=== PATIENT | female | born 1955 | race Caucasian/White ===

== ENCOUNTER 2016-08-07 17:01 | Emergency (ER) | payer OTHER | END 2016-08-07 17:06 | disposition left against medical advice (07) | LOC: CED 17:01 | DX: Z53.21 Procedure and treatment not carried out due to patient leaving prior to being seen by health care provider (principal) ==

== ENCOUNTER → 2017-01-26 | Outpatient (CLI) | payer OTHER | LOC: CIMAGING 13:37 | PROVIDERS: ATTEND Family Medicine | DX: Z12.31 Encounter for screening mammogram for malignant neoplasm of breast (principal); Z80.3 Family history of malignant neoplasm of breast | CPT/HCPCS: G0202 ==

== ENCOUNTER 2017-02-26 08:31 | Emergency (ER) | payer OTHER ==
[2017-02-26] MEDS ORDERED: NS 1,000 ML IV ONE (08:59)
[2017-02-26] MEDS ORDERED: ONDANSETRON 4 MG/2 ML VIAL IVP ONE (09:08)
[2017-02-26] MEDS ORDERED: HYDROmorphONE/DILAUDID 1 MG/ML INJ IVP ONE ×3 (09:09→12:29)
--- NOTE | 2017-02-26 09:13 | EDPHY ---
H & P Stated Complaint: Abd pain/cramping;+nausea - Personal History Current Tetanus Diphtheria and Acellular Pertussis (TDAP): Yes Tetanus Vaccine Date: 2009 - Medical/Surgical History Hx Asthma: No Hx Chronic Respiratory Disease: No Hx Diabetes: No Hx Cardiac Disease: Yes Hx Renal Disease: No Hx Cirrhosis: No Hx Alcoholism: No Hx HIV/AIDS: No Hx Splenectomy or Spleen Trauma: No Other PMH: med hx-depression/anxiety,diverticulitis,cholesterol,bleeding duodenal ulcer,nephrectomy,CAD. surg-appy,1-kidney,héctor and c-sect - Social History Smoking Status: Former smoker Time Seen by Provider: 02/26/17 08:55 HPI/ROS: CHIEF COMPLAINT: Epigastric pain, nausea HISTORY OF PRESENT ILLNESS: 62-year-old female history of irritable bowel syndrome, coronary artery disease, awoke at 4:00 a.m. complaining of a non thunderclap headache followed by nausea and epigastric pain, feels like "there is a dagger going through me ". She was evaluated previously several years ago for chest pain with coronary artery disease without stenting. She states that this feels distinctly different from that episode this feels more like a gastritis or irritable bowel syndrome episode. Denies: chest pain, dyspnea, syncope or near syncope, diaphoresis PRIMARY CARE PROVIDER:Dr. Angy Cui. Dr. Ray Rock cardiology REVIEW OF SYSTEMS: A ten point review of systems was performed and is negative with the exception of the items mentioned in the HPI PAST MEDICAL & SURGICAL HISTORY: Appendectomy. Cholecystectomy. Diverticulitis. Coronary artery disease. 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 No drug use. . PHYSICAL EXAM (Prior to examination, patient consented to physical exam, hands were washed and my usual and customary physical exam procedures followed) 1) GENERAL: Well-developed, well-nourished, alert and oriented. Appears uncomfortable, holding an emesis basin. 2) HEAD: Normocephalic, atraumatic 3) HEENT: Pupils equal, round, reactive to light bilaterally. Sclera anicteric. 4) NECK: Full range of motion, no meningeal signs. Negative carotid bruit 5) LUNGS: Clear auscultation bilaterally, no wheezes, no rhonchi, no retractions. 6) HEART: Regular rate and rhythm, no murmur, no heave, no gallop. 7) ABDOMEN: guarding epigastrium, tender to palpation epigastrium, no rebound, no focal tenderness, negative McBurney's, negative Perez's, negative Rovsing's , negative peritoneal sign, 8) MUSCULOSKELETAL: Moving all extremities, no focal areas of tenderness, no obvious trauma. No peripheral edema or discoloration. 9) BACK: No CVA tenderness, no midline vertebral tenderness, no fluctuance, no step-off, no obvious trauma, no visual or palpable abnormality. 10) SKIN: No rash, no petechiae. 11) Psychiatric: Patient is oriented X 3, there is no agitation. DIFFERENTIAL DIAGNOSIS: In no particular order, including but not limited to biliary colic, , abdominal aortic aneurysm, cholecystitis, peptic ulcer disease , pancreatitis, and gastroenteritis. This is a partial list of diagnoses considered. These considerations are based on history, physical exam, past history and reassessment. (Lillian King) Constitutional: Initial Vital Signs Temperature (C) 36 C 02/26/17 08:40 Heart Rate 73 02/26/17 08:40 Respiratory Rate 16 02/26/17 08:40 Blood Pressure 154/100 H 02/26/17 08:40 O2 Sat (%) 97 02/26/17 08:40 O2 Delivery Mode Room Air O2 (L/minute) 2 Allergies/Adverse Reactions: morphine Allergy (Intermediate, Verified 02/26/17 08:39) hallucinations Home Medications: Medication Instructions Recorded Atorvastatin Calcium 11/20/15 Carvedilol 11/20/15 Centrum Silver Tablet 11/20/15 Colace 100 MG (*) 11/20/15 [place]-3 Fatty Acids 11/20/15 Ondansetron Odt [Zofran Odt 4 mg 4 mg PO Q4 PRN #10 tab 11/20/15 (*)] Protonix 11/20/15 Vitamin D3 11/20/15 Dicyclomine [Bentyl 10 MG (*)] 10 mg PO 02/26/17 Hydrocodone/APAP 5/325 [[place] 1 tab PO Q6 PRN #10 tab 02/26/17 5/325 (RX)] LORazepam [Ativan (*)] 0.5 mg PO 02/26/17 Medical Decision Making - Diagnostics EKG Interpretation: EKG interpreted by me shows normal sinus rhythm with normal interval. Left axis deviation. QRS is otherwise normal. There is no significant ST elevation or depression. There is no arrhythmia. The rate is 64 (Checo Vega) Imaging Results: Imaging Impressions Chest X-Ray 02/26/17 09:08 Impression: Blunting of the posterior costophrenic angle which could reflect positioning of the hemidiaphragm versus a small pleural effusion. Abdomen CT 02/26/17 10:00 Impression: 1. No acute findings in the abdomen. 2. Diverticulosis without evidence of diverticulitis. 3. Additional findings as above. Findings discussed with Kayla King today at 1058 hours. ED Course/Re-evaluation: 9:09 a.m.: Case discussed with secondary supervising physician Dr. Checo Vega in the ER. Will obtain laboratory studies including troponin, EKG, chest x-ray. She is complaining of pain, notes that she does not tolerate morphine well as a makes her hallucinate but does tolerate Dilaudid. Will administer small dose of Dilaudid, Zofran and re-evaluated. 9:59 a.m.: Re-evaluation, nausea retching resolved, pain continues 12:29 p.m.: Re-evaluation, she is still complaining of continued pain. We recommended admission to the hospital. She would like to attempt 1 further dose of Dilaudid see if she has sufficient pain relief prior to making this decision. 1:01 p.m.: Re-evaluation after IV Toradol. She still complains of pain however states that this has decreased slightly. I have recommended admission as the specific etiology of her discomfort is not completely clear, she has been informed that cardiac etiology is not ruled out. She verbalized understanding of this. This was witnessed by family members. States that she believes she can manage this more appropriate home with oral analgesia. She is already on a proton pump inhibitor I recommend she continue this. Recommend she also follow up with her service team leader Dr. Thom Asif. If at any point she has worsening discomfort or new symptoms she needs to return to the ER immediately for re-evaluation. She feels comfortable with this plan. (Lillian King) I did not see this patient while she was in the emergency department. However her care was discussed with the PA while the patient was in the department. I agree with treatment plan and management. I am the secondary supervising physician (Checo Vega) - Data Points Laboratory Results: Laboratory Results 02/26/17 09:01 02/26/17 09:01 02/26/17 02/26/17 09:01 09:01 WBC 9.02 10^3/uL 10^3/uL (3.80-9.50) RBC 4.89 10^6/uL 10^6/uL (4.18-5.33) Hgb 14.4 g/dL g/dL (12.6-16.3) Hct 41.9 % % (38.0-47.0) MCV 85.7 fL fL (81.5-99.8) MCH 29.4 pg pg (27.9-34.1) MCHC 34.4 g/dL g/dL (32.4-36.7) RDW 13.3 % % (11.5-15.2) Plt Count 223 10^3/uL 10^3/uL (150-400) MPV 9.8 fL fL (8.7-11.7) Neut % (Auto) 78.5 % H % (39.3-74.2) Lymph % (Auto) 15.9 % % (15.0-45.0) [place] % (Auto) 3.7 % L % (4.5-13.0) Eos % (Auto) 1.2 % % (0.6-7.6) Baso % (Auto) 0.4 % % (0.3-1.7) Nucleat RBC Rel Count 0.0 % % (0.0-0.2) Absolute Neuts (auto) 7.08 10^3/uL H 10^3/uL (1.70-6.50) Absolute Lymphs (auto) 1.43 10^3/uL 10^3/uL (1.00-3.00) Absolute Monos (auto) 0.33 10^3/uL 10^3/uL (0.30-0.80) Absolute Eos (auto) 0.11 10^3/uL 10^3/uL (0.03-0.40) Absolute Basos (auto) 0.04 10^3/uL 10^3/uL (0.02-0.10) Absolute Nucleated RBC 0.00 10^3/uL 10^3/uL (0-0.01) Immature Gran % 0.3 % % (0.0-1.1) Immature Gran # 0.03 10^3/uL 10^3/uL (0.00-0.10) Sodium 143 mEq/L mEq/L (134-144) Potassium 4.1 mEq/L mEq/L (3.5-5.2) Chloride 105 mEq/L mEq/L (97-110) Carbon Dioxide 23 mEq/l mEq/l (22-31) Anion Gap 15 mEq/L mEq/L (8-16) BUN 14 mg/dL mg/dL (7-23) Creatinine 0.9 mg/dL mg/dL (0.6-1.0) Estimated GFR > 60 Glucose 107 mg/dL H mg/dL (70-100) Calcium 9.5 mg/dL mg/dL (8.5-10.4) Total Bilirubin 1.1 mg/dL mg/dL (0.1-1.4) Conjugated Bilirubin 0.0 mg/dL mg/dL (0.0-0.5) Unconjugated Bilirubin 1.1 mg/dL mg/dL (0.0-1.1) AST 27 IU/L IU/L (14-46) ALT 34 IU/L IU/L (9-52) Alkaline Phosphatase 124 IU/L IU/L (38-126) Troponin I < 0.012 ng/mL ng/mL (0.000-0.034) Total Protein 6.8 g/dL g/dL (6.3-8.2) Albumin 4.0 g/dL g/dL (3.5-5.0) Lipase 112 IU/L IU/L (23-300) Medications Given: Discontinued Medications Al Hydroxide/Mg Hydroxide (Maalox Susp) 30 ml PO ONCE ONE Stop: 02/26/17 11:22 Last Admin: 02/26/17 11:38 Dose: 30 ml Hydromorphone HCl (Dilaudid) 0.5 mg IVP EDNOW ONE Stop: 02/26/17 09:10 Last Admin: 02/26/17 09:23 Dose: 0.5 mg Hydromorphone HCl (Dilaudid) 1 mg IVP EDNOW ONE Stop: 02/26/17 10:00 Last Admin: 02/26/17 10:06 Dose: 1 mg Hydromorphone HCl (Dilaudid) 0.5 mg IVP EDNOW ONE Stop: 02/26/17 12:30 Last Admin: 02/26/17 12:41 Dose: Not Given Hyoscyamine Sulfate (Levsin, Hyomax-Sl) 0.25 mg PO ONCE ONE Stop: 02/26/17 11:22 Last Admin: 02/26/17 11:37 Dose: 0.25 mg Sodium Chloride (Ns) 1,000 mls @ 0 mls/hr IV ONCE ONE PRN Reason: Wide Open Stop: 02/26/17 09:00 Last Admin: 02/26/17 09:00 Dose: 1,000 mls Ketorolac Tromethamine (Toradol) 15 mg IVP EDNOW ONE Stop: 02/26/17 12:33 Last Admin: 02/26/17 12:36 Dose: 15 mg Lidocaine (Lidocaine 2% Viscous) 15 ml PO ONCE ONE Stop: 02/26/17 11:22 Last Admin: 02/26/17 11:38 Dose: 15 ml Ondansetron HCl (Zofran) 4 mg IVP EDNOW ONE Stop: 02/26/17 09:09 Last Admin: 02/26/17 09:23 Dose: 4 mg Departure - Departure Disposition: Home, Routine, Self-Care Clinical Impression: Abdominal pain Qualifiers: Abdominal location: epigastric Qualified Code(s): R10.13 - Epigastric pain Condition: Good Instructions: Acute Abdominal Pain (ED) Additional Instructions: Seek immediate medical attention if you develop new or worsening symptoms, if you develop fevers, chills, inability to tolerate oral intake or any other symptoms that concerns you. I have recommended admission to the hospital , you have declined this. You are more than welcome to return to the ER at any point. Definitely if you develop intractable pain, new or worsening symptoms please seek immediate medical attention. Referrals: Angy Cui MD [Primary Care Provider] - 1 day without fail Thom Asif MD, FACG [Medical Doctor] - 2-3 days, call for appt. Prescriptions: Hydrocodone/APAP 5/325 [[place] 5/325 (RX)] 1 tab PO Q6 PRN #10 tab PRN Reason: Pain, Severe
[2017-02-26 09:14] LABS: % IMMATURE GRANULYOCYTES 0.3 % (0.0-1.1); ABSOLUTE IMMATURE GRANULOCYTES 0.03 10^3/uL (0.00-0.10); ADD DIFF? NO; ADD MORPH? NO; ADD SCAN? NO; ATYPICAL LYMPHOCYTE FLAG 0 (0-99); FRAGMENT RBC FLAG 0 (0-99); HEMATOCRIT 41.9 % (38.0-47.0); HEMOGLOBIN 14.4 g/dL (12.6-16.3); LEFT SHIFT FLG 0 (0-99); LIPEMIA HEMOLYSIS FLAG 90 (0-99); MEAN CELL HEMOGLOBIN 29.4 pg (27.9-34.1); MEAN CELL HEMOGLOBIN CONCENTR. 34.4 g/dL (32.4-36.7); MEAN CELL VOLUME 85.7 fL (81.5-99.8); MEAN PLATELET VOLUME 9.8 fL (8.7-11.7); PLATELET CLUMPS FLAG 0 (0-99); PLATELET COUNT 223 10^3/uL (150-400); RED BLOOD CELL COUNT 4.89 10^6/uL (4.18-5.33); RED CELL DISTRIBUTION WIDTH 13.3 % (11.5-15.2)
--- NOTE | 2017-02-26 09:19 | CPEKG ---
Heart Rate: 64 RR Interval: 938 P-R Interval: 156 QRSD Interval: 90 QT Interval: 424 QTC Interval: 438 P [place]: 49 QRS [place]: -25 T Wave [place]: 53 EKG Severity - OTHERWISE NORMAL ECG - EKG Impression: SINUS RHYTHM EKG Impression: BORDERLINE LEFT AXIS DEVIATION Electronically Signed By: Checo Vega 26-Feb-2017 11:27:26
[2017-02-26 09:24] LABS: ALANINE AMINOTRANSFERASE 34 IU/L (9-52); ALKALINE PHOSPHATASE 124 IU/L (38-126); ANION GAP 15 mEq/L (8-16); ASPARTATE AMINOTRANSFERASE 27 IU/L (14-46); BILIRUBIN,TOTAL 1.1 mg/dL (0.1-1.4); BILIRUBIN-UNCONJUGATED 1.1 mg/dL (0.0-1.1); CALCIUM 9.5 mg/dL (8.5-10.4); CARBON DIOXIDE 23 mEq/l (22-31); CHLORIDE 105 mEq/L (97-110); CREATININE 0.9 mg/dL (0.6-1.0); GLOMERULAR FILTRATION RATE > 60; GLUCOSE 107 mg/dL (70-100); POTASSIUM 4.1 mEq/L (3.5-5.2); SODIUM 143 mEq/L (134-144); TOTAL PROTEIN 6.8 g/dL (6.3-8.2)
[2017-02-26 09:35] LABS: TROPONIN I < 0.012 ng/mL (0.000-0.034)
[2017-02-26] MEDS ORDERED: IOPAMIDOL (ISOVUE-300) 100 ML BTL ONE (10:15)
[2017-02-26] MEDS ORDERED: LIDOCAINE 2% VISCOUS 15 ML UDCUP PO ONE (11:21)
[2017-02-26] MEDS ORDERED: HYOSCYAMINE SULFATE 0.125 MG TAB PO ONE (11:21)
[2017-02-26] MEDS ORDERED: MAG HYDROX/AL HYDROX/SIMETH 30 ML UDCUP PO ONE (11:21)
[2017-02-26] MEDS ORDERED: KETOROLAC 30 MG/1 ML SDV IVP ONE (12:32)
[2017-02-26 13:16] VITALS: BP 140/86; PULSE 54; RESP 12; TEMP 97.9; O2SAT 94
== END 2017-02-26 13:17 | disposition home or self-care (01) ==
DX: R10.13 Epigastric pain (principal); I25.10 Atherosclerotic heart disease of native coronary artery without angina pectoris; Z87.891 Personal history of nicotine dependence; Z90.49 Acquired absence of other specified parts of digestive tract
CPT/HCPCS: 96374; J1170; J1885; J2405; Q9967

== ENCOUNTER 2017-02-26 18:22 | Observation (INO) | payer OTHER ==
[2017-02-26 19:49] LABS: % IMMATURE GRANULYOCYTES 0.5 % (0.0-1.1); ABSOLUTE IMMATURE GRANULOCYTES 0.05 10^3/uL (0.00-0.10); ADD DIFF? NO; ADD MORPH? NO; ADD SCAN? NO; ATYPICAL LYMPHOCYTE FLAG 0 (0-99); FRAGMENT RBC FLAG 0 (0-99); HEMATOCRIT 40.5 % (38.0-47.0); HEMOGLOBIN 13.9 g/dL (12.6-16.3); LEFT SHIFT FLG 0 (0-99); LIPEMIA HEMOLYSIS FLAG 90 (0-99); MEAN CELL HEMOGLOBIN 30.2 pg (27.9-34.1); MEAN CELL HEMOGLOBIN CONCENTR. 34.3 g/dL (32.4-36.7); MEAN CELL VOLUME 87.9 fL (81.5-99.8); MEAN PLATELET VOLUME 9.8 fL (8.7-11.7); PLATELET CLUMPS FLAG 0 (0-99); PLATELET COUNT 202 10^3/uL (150-400); RED BLOOD CELL COUNT 4.61 10^6/uL (4.18-5.33); RED CELL DISTRIBUTION WIDTH 13.4 % (11.5-15.2)
[2017-02-26 19:55] LABS: ANION GAP 10 mEq/L (8-16); CALCIUM 9.1 mg/dL (8.5-10.4); CARBON DIOXIDE 23 mEq/l (22-31); CHLORIDE 107 mEq/L (97-110); GLOMERULAR FILTRATION RATE 56; GLUCOSE 122 mg/dL (70-100); POTASSIUM 4.1 mEq/L (3.5-5.2); SODIUM 140 mEq/L (134-144)
[2017-02-26] MEDS ORDERED: LIDOCAINE 2% VISCOUS 15 ML UDCUP PO ONE (19:55)
[2017-02-26] MEDS ORDERED: MAG HYDROX/AL HYDROX/SIMETH 30 ML UDCUP PO ONE (19:55)
[2017-02-26] MEDS ORDERED: HYOSCYAMINE SULFATE 0.125 MG TAB PO ONE (19:55)
[2017-02-26] MEDS ORDERED: NS 1,000 ML IV ONE (19:55)
--- NOTE | 2017-02-26 19:57 | EDPHY ---
H & P Stated Complaint: Here this morning;returns now w/same c/o. Wants admission Time Seen by Provider: 02/26/17 19:21 HPI/ROS: CHIEF COMPLAINT: Epigastric pain and vomiting HISTORY OF PRESENT ILLNESS: The patient is a 62-year-old female who returns to the emergency department complaining of epigastric pain nausea and dry heaving. She was here earlier this morning for the same and had lab work which is reassuring and normal abdominal CT scan. She was admitted for similar symptoms in April of 2014 and had an extensive workup including upper and lower endoscopies as well as MRI of her abdomen which ultimately did not reveal any diagnosis. There was felt that her pain was likely due to anxiety from the recent cancer diagnosis of her sister. I asked her about this and she states that she is having stress currently because she has missed her mom and sister both. She does have a history of irritable bowel disease and follows with Gastroenterology Dr. Asif. She denies fevers. She does have a history of peptic ulcer disease but states that she only takes her proton pump inhibitor intermittently when she has symptoms. She denies having blood in her stool or diarrhea. REVIEW OF SYSTEMS: Constitutional: denies: chills, fever, recent illness, recent injury EENTM: denies: blurred vision, double vision, nose congestion Respiratory: denies: cough, shortness of breath Cardiac: denies: chest pain, irregular heart rate, lightheadedness, palpitations Gastrointestinal/Abdominal: See HPI Genitourinary: denies: dysuria, frequency, hematuria, pain Musculoskeletal: denies: joint pain, muscle pain Skin: denies: lesions, rash, jaundice, bruising Neurological: denies: headache, numbness, paresthesia, tingling, dizziness, weakness Hematologic/Lymphatic: denies: blood clots, easy bleeding, easy bruising Immunologic/allergic: denies: HIV/AIDS, transplant EXAM: GENERAL: Well-appearing, well-nourished and in no acute distress. HEAD: Atraumatic, normocephalic. EYES: Pupils equal round and reactive to light, extraocular movements intact, sclera anicteric, conjunctiva are normal. ENT: TMs normal, nares patent, oropharynx clear without exudates. Moist mucous membranes. NECK: Normal range of motion, supple without lymphadenopathy or JVD. LUNGS: Breath sounds clear to auscultation bilaterally and equal. No wheezes rales or rhonchi. HEART: Regular rate and rhythm without murmurs, rubs or gallops. ABDOMEN: Epigastric tenderness BACK: No CVA tenderness, no spinal tenderness, step-offs or deformities EXTREMITIES: Normal range of motion, no pitting or edema. No clubbing or cyanosis. NEUROLOGICAL: Cranial nerves II through XII grossly intact. Normal speech, normal gait. 5/5 strength, normal movement in all extremities, normal sensation PSYCH: Normal mood, normal affect. SKIN: Warm, dry, normal turgor, no visible rashes or lesions. Source: Patient Exam Limitations: No limitations - Personal History Current Tetanus Diphtheria and Acellular Pertussis (TDAP): Yes Tetanus Vaccine Date: 2009 - Medical/Surgical History Hx Asthma: No Hx Chronic Respiratory Disease: No Hx Diabetes: No Hx Cardiac Disease: Yes Hx Renal Disease: No Hx Cirrhosis: No Hx Alcoholism: No Hx HIV/AIDS: No Hx Splenectomy or Spleen Trauma: No Other PMH: med hx-depression/anxiety,diverticulitis,cholesterol,bleeding duodenal ulcer,nephrectomy,CAD. surg-appy,1-kidney,héctor and c-sect - Family History Significant Family History: No pertinent family hx - Social History Smoking Status: Former smoker Alcohol Use: Sober Drug Use: None Constitutional: Initial Vital Signs Temperature (C) 36.7 C 02/26/17 18:43 Heart Rate 80 02/26/17 18:43 Respiratory Rate 18 02/26/17 18:43 Blood Pressure 142/107 H 02/26/17 18:43 O2 Sat (%) 97 02/26/17 18:43 O2 Delivery Mode Room Air Allergies/Adverse Reactions: morphine Allergy (Intermediate, Verified 02/26/17 08:39) hallucinations Home Medications: Medication Instructions Recorded Atorvastatin Calcium [Lipitor 20 20 mg PO HS 11/20/15 mg (*)] Carvedilol [Coreg (*)] 6.25 mg PO BIDMEAL 11/20/15 Docusate Sodium [Colace 100 MG (*)] 100 mg PO DAILY PRN 11/20/15 [place]/Supplements -Info Only 1 ea PO DAILY 11/20/15 Ondansetron Odt [Zofran Odt 4 mg 4 mg PO Q4 PRN #10 tab 11/20/15 (*)] Pantoprazole Sodium [Protonix 40mg 40 mg PO DAILY PRN 11/20/15 (*)] Aspirin EC [Aspirin EC 81 mg (*)] 81 mg PO DAILY 02/26/17 LORazepam [Ativan (*)] 0.5 mg PO DAILY PRN 02/26/17 Medical Decision Making - Diagnostics EKG Interpretation: An EKG obtained and was read and documented in trace view. Please see trace view for full reading and report. Sinus rhythm, no acute ischemic changes ED Course/Re-evaluation: 8:50 p.m. I discussed the case with Dr. Danielito Gunn who will admit to the medical service. Patient does not feel better after GI cocktail. She has not yet received the other medications ordered. Differential Diagnosis: Partial list of the Differential diagnosis considered include but were not limited to; gastritis, food poisoning, anxiety, peptic ulcer disease and although unlikely based on the history and physical exam, I also considered obstruction, ischemia, volvulus. I discussed these differential diagnoses and the plan with the patient as well as the usual and expected course. The patient understands that the diagnosis is provisional and that in medicine we are not always correct and that further workup is often warranted. Usual and customary warnings were given. All of the patient's questions were answered. The patient was instructed to return to the emergency department should the symptoms at all worsen or return, otherwise to followup with the physician as we discussed. - Data Points Laboratory Results: Laboratory Results 02/26/17 19:30 02/26/17 19:30 02/26/17 02/26/17 02/26/17 19:30 19:30 19:30 WBC 10.48 10^3/uL H 10^3/uL (3.80-9.50) RBC 4.61 10^6/uL 10^6/uL (4.18-5.33) Hgb 13.9 g/dL g/dL (12.6-16.3) Hct 40.5 % % (38.0-47.0) MCV 87.9 fL fL (81.5-99.8) MCH 30.2 pg pg (27.9-34.1) MCHC 34.3 g/dL g/dL (32.4-36.7) RDW 13.4 % % (11.5-15.2) Plt Count 202 10^3/uL 10^3/uL (150-400) MPV 9.8 fL fL (8.7-11.7) Neut % (Auto) 77.9 % H % (39.3-74.2) Lymph % (Auto) 15.6 % % (15.0-45.0) [place] % (Auto) 4.8 % % (4.5-13.0) Eos % (Auto) 0.9 % % (0.6-7.6) Baso % (Auto) 0.3 % % (0.3-1.7) Nucleat RBC Rel Count 0.0 % % (0.0-0.2) Absolute Neuts (auto) 8.18 10^3/uL H 10^3/uL (1.70-6.50) Absolute Lymphs (auto) 1.63 10^3/uL 10^3/uL (1.00-3.00) Absolute Monos (auto) 0.50 10^3/uL 10^3/uL (0.30-0.80) Absolute Eos (auto) 0.09 10^3/uL 10^3/uL (0.03-0.40) Absolute Basos (auto) 0.03 10^3/uL 10^3/uL (0.02-0.10) Absolute Nucleated RBC 0.00 10^3/uL 10^3/uL (0-0.01) Immature Gran % 0.5 % % (0.0-1.1) Immature Gran # 0.05 10^3/uL 10^3/uL (0.00-0.10) Sodium 140 mEq/L mEq/L (134-144) Potassium 4.1 mEq/L mEq/L (3.5-5.2) Chloride 107 mEq/L mEq/L (97-110) Carbon Dioxide 23 mEq/l mEq/l (22-31) Anion Gap 10 mEq/L mEq/L (8-16) BUN 15 mg/dL mg/dL (7-23) Creatinine 1.0 mg/dL mg/dL (0.6-1.0) Estimated GFR 56 Glucose 122 mg/dL H mg/dL (70-100) Calcium 9.1 mg/dL mg/dL (8.5-10.4) Total Bilirubin 1.0 mg/dL mg/dL (0.1-1.4) Conjugated Bilirubin 0.3 mg/dL mg/dL (0.0-0.5) Unconjugated Bilirubin 0.7 mg/dL mg/dL (0.0-1.1) AST 26 IU/L IU/L (14-46) ALT 31 IU/L IU/L (9-52) Alkaline Phosphatase 106 IU/L IU/L (38-126) Troponin I < 0.012 ng/mL ng/mL (0.000-0.034) Total Protein 6.1 g/dL L g/dL (6.3-8.2) Albumin 3.5 g/dL g/dL (3.5-5.0) Lipase 80 IU/L IU/L (23-300) Medications Given: Discontinued Medications Al Hydroxide/Mg Hydroxide (Maalox Susp) 30 ml PO ONCE ONE Stop: 02/26/17 19:56 Last Admin: 02/26/17 20:06 Dose: 30 ml Haloperidol Lactate (Haldol Injection) 2.5 mg IVP EDNOW ONE Stop: 02/26/17 20:04 Last Admin: 02/26/17 20:47 Dose: 2.5 mg Hyoscyamine Sulfate (Levsin, Hyomax-Sl) 0.25 mg PO ONCE ONE Stop: 02/26/17 19:56 Last Admin: 02/26/17 20:06 Dose: 0.25 mg Sodium Chloride (Ns) 1,000 mls @ 0 mls/hr IV EDNOW ONE; Wide Open PRN Reason: Protocol Stop: 02/26/17 19:56 Last Admin: 02/26/17 20:06 Dose: 1,000 mls Lidocaine (Lidocaine 2% Viscous) 15 ml PO ONCE ONE Stop: 02/26/17 19:56 Last Admin: 02/26/17 20:06 Dose: 15 ml Metoclopramide HCl (Reglan Injection) 10 mg IVP EDNOW ONE Stop: 02/26/17 20:04 Last Admin: 02/26/17 20:47 Dose: 10 mg Departure - Departure Disposition: [facility] Inpatient Acute Clinical Impression: Abdominal pain Qualifiers: Abdominal location: epigastric Qualified Code(s): R10.13 - Epigastric pain Condition: Fair
[2017-02-26] MEDS ORDERED: HALOPERIDOL LACT 5 MG/ML INJ IVP ONE (20:03)
[2017-02-26] MEDS ORDERED: METOCLOPRAMIDE 10 MG/2 ML VIAL IVP ONE (20:03)
--- NOTE | 2017-02-26 20:23 | CPEKG ---
Heart Rate: 68 RR Interval: 882 P-R Interval: 152 QRSD Interval: 96 QT Interval: 440 QTC Interval: 469 P [place]: 46 QRS [place]: -1 T Wave [place]: 63 EKG Severity - NORMAL ECG - EKG Impression: SINUS RHYTHM Electronically Signed By: Dipak Cancino 26-Feb-2017 22:46:41
[2017-02-26 20:51] LABS: ALANINE AMINOTRANSFERASE 31 IU/L (9-52); ALBUMIN 3.5 g/dL (3.5-5.0); ALKALINE PHOSPHATASE 106 IU/L (38-126); ASPARTATE AMINOTRANSFERASE 26 IU/L (14-46); BILIRUBIN-CONJUGATED 0.3 mg/dL (0.0-0.5); BILIRUBIN-UNCONJUGATED 0.7 mg/dL (0.0-1.1); TOTAL PROTEIN 6.1 g/dL (6.3-8.2)
[2017-02-26 21:02] LABS: TROPONIN I < 0.012 ng/mL (0.000-0.034)
[2017-02-26] MEDS ORDERED: ONDANSETRON 4 MG/2 ML VIAL IVP PRN (22:55)
[2017-02-26] MEDS ORDERED: METOCLOPRAMIDE 10 MG/2 ML VIAL IVP PRN (22:55)
[2017-02-26] MEDS ORDERED: ACETAMINOPHEN 325 MG TAB PO PRN (22:55)
[2017-02-26] MEDS ORDERED: LORazepam 2 MG/ML INJ IVP PRN (22:55)
[2017-02-26] MEDS: PANTOPRAZOLE SODIUM 40 MG VIAL IVP SCH (23:39)
--- NOTE | 2017-02-26 23:40 | PDGENHP ---
History and Physical - Chief Complaint epigastric pain, nausea - History of Present Illness Source - patient provides history and appears reliable. EMR reviewed and case discussed with accepting provider. HPI - Pleasant 62 yo F with pmhx significant for IBS, depression/anxiety, diverticulitis, cholesterol, bleeding duodenal ulcer in childhood, CAD nonocclusive, hx of gastritis who presents to the ED with complaints of significant epigastric pain that work her up at 0400 this morning. patient noted nausea/vomiting occasionally with bile. she also reported BARRERA. patient denies any fevers/chills. denies any sick contacts. Patient has ppi available but reports she only takes this prn for GI upset and not on a regular basis despite hx of gastritis. Patient was seen in the ED earlier in the morning. She had complete laboratory evaluation as well as a CT abd/pelvis which was negative for any acute GI findings. Patient seen on the medical floor and reports her nausea/vomiting had improved after anti-emetics and pain medications. she continues to have some mild epigastric pain but much improved and patient was able to fall asleep. History Information - Allergies/Home Medication List Allergies/Adverse Reactions: morphine Allergy (Intermediate, Verified 02/26/17 08:39) hallucinations Home Medications: Atorvastatin Calcium [Lipitor 20 mg (*)] 20 mg PO HS 11/20/15 [Last Taken ] Carvedilol [Coreg (*)] 6.25 mg PO BIDMEAL 11/20/15 [Last Taken 02/25/17] Docusate Sodium [Colace 100 MG (*)] 100 mg PO DAILY PRN 11/20/15 [Last Taken ] Herbals/Supplements -Info Only 1 ea PO DAILY 11/20/15 [Last Taken 02/25/17] Pantoprazole Sodium [Protonix 40mg (*)] 40 mg PO DAILY PRN 11/20/15 [Last Taken 02/24/17] Aspirin EC [Aspirin EC 81 mg (*)] 81 mg PO DAILY 02/26/17 [Last Taken 02/25/17] LORazepam [Ativan (*)] 0.5 mg PO DAILY PRN 02/26/17 [Last Taken 02/25/17] I have personally reviewed and updated: family history, medical history, social history, surgical history - Past Medical History Additional medical history: depression/anxiety. IBS (mixed). diverticulosis/ itis. HLD. hx gastritis. hx bleeding duodenal ulcer in childhood. CAD no occlusive disease on med management - Surgical History Additional surgical history: appy. 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 C/S x 1. héctor. egd. c-scope - Family History Additional family history: brother - leukemia. older sister with Brease ca, bone ca (). younger sister - Crohn's, cancer (). daughter - healthy - Social History Smoking Status: Former smoker (quit 20 yrs ago) Alcohol Use: None (stopped drinking all together a few months ago but denies any hx of daily use or abuse.) Drug Use: None Additional social history: . lives with . COR - FULL. Eleazar Cannon to be proxy if needed. Review of Systems Review of Systems: ROS: 10pt was reviewed & negative except for what was stated in HPI & below Constitutional: Denies: chills, fever EENMT: Reports: no symptoms Cardiac: Reports: no symptoms Respiratory: Reports: no symptoms Gastrointestinal: Reports: vomitting, abdominal pain (see HPI. ), nausea Genitourinary: Reports: no symptoms Muscolosketal: Reports: no symptoms Skin: Reports: no symptoms Neurological: Reports: headache. Denies: numbness, tingling Physical Exam Physical Exam: Selected Entries 02/26/17 18:43 Blood Pressure Automatic Method Heart Rate 80 Respiratory 18 Rate O2 Sat (%) 97 Temperature (C) 36.7 C Blood Pressure 142/107 H Mean Arterial 118 H Pressure (MAP) O2 Delivery Room Air Mode Temperature Oral Source Temp Pulse Resp BP Pulse Ox 37.0 C 89 90 H 120/73 91 L 02/26/17 23:31 02/26/17 23:31 02/26/17 23:31 02/26/17 23:31 02/26/17 21:45 Constitutional: no apparent distress, appears nourished, other (fatigued appearing. ) Eyes: PERRL, anicteric sclera, EOMI, scleral injection Ears, Nose, Mouth, Throat: dry mucous membranes Cardiovascular: regular rate and rhythym, no murmur, rub, or gallop, systolic murmur, No edema Peripheral Pulses: 2+: dorsalis-pedis (R), dorsalis-pedis (L) Respiratory: no respiratory distress, no rales or rhonchi, clear to auscultation , No reduced air movement Gastrointestinal: normoactive bowel sounds, no palpable masses, tenderness ( epigastrium), No guarding, No rebound, No distension Genitourinary: no bladder tenderness, No nieto in urethra Skin: warm, normal color, no rashes or abrasions, No rash Musculoskeletal: full muscle strength, No joint tenderness Neurologic: AAOx3, sensation intact bilaterally, other (grossly nonfocal. ), No weakness, No numbness Psychiatric: interacting appropriately, not anxious, not encephalopathic, thought process linear, No poor insight, No poor judgement, No poor memory Lab Data & Imaging Review 02/27/17 04:50 02/27/17 04:50 WBC 10.48 10^3/uL (3.80-9.50) H 02/26/17 19:30 RBC 4.61 10^6/uL (4.18-5.33) 02/26/17 19:30 Hgb 13.9 g/dL (12.6-16.3) 02/26/17 19:30 Hct 40.5 % (38.0-47.0) 02/26/17 19:30 MCV 87.9 fL (81.5-99.8) 02/26/17 19:30 MCH 30.2 pg (27.9-34.1) 02/26/17 19:30 MCHC 34.3 g/dL (32.4-36.7) 02/26/17 19:30 RDW 13.4 % (11.5-15.2) 02/26/17 19:30 Plt Count 202 10^3/uL (150-400) 02/26/17 19:30 MPV 9.8 fL (8.7-11.7) 02/26/17 19:30 Neut % (Auto) 77.9 % (39.3-74.2) H 02/26/17 19:30 Lymph % (Auto) 15.6 % (15.0-45.0) 02/26/17 19:30 [place] % (Auto) 4.8 % (4.5-13.0) 02/26/17 19:30 Eos % (Auto) 0.9 % (0.6-7.6) 02/26/17 19:30 Baso % (Auto) 0.3 % (0.3-1.7) 02/26/17 19:30 Nucleat RBC Rel Count 0.0 % (0.0-0.2) 02/26/17 19:30 Absolute Neuts (auto) 8.18 10^3/uL (1.70-6.50) H 02/26/17 19:30 Absolute Lymphs (auto) 1.63 10^3/uL (1.00-3.00) 02/26/17 19:30 Absolute Monos (auto) 0.50 10^3/uL (0.30-0.80) 02/26/17 19:30 Absolute Eos (auto) 0.09 10^3/uL (0.03-0.40) 02/26/17 19:30 Absolute Basos (auto) 0.03 10^3/uL (0.02-0.10) 02/26/17 19:30 Absolute Nucleated RBC 0.00 10^3/uL (0-0.01) 02/26/17 19:30 Immature Gran % 0.5 % (0.0-1.1) 02/26/17 19:30 Immature Gran # 0.05 10^3/uL (0.00-0.10) 02/26/17 19:30 Sodium 140 mEq/L (134-144) 02/26/17 19:30 Potassium 4.1 mEq/L (3.5-5.2) 02/26/17 19:30 Chloride 107 mEq/L (97-110) 02/26/17 19:30 Carbon Dioxide 23 mEq/l (22-31) 02/26/17 19:30 Anion Gap 10 mEq/L (8-16) 02/26/17 19:30 BUN 15 mg/dL (7-23) 02/26/17 19:30 Creatinine 1.0 mg/dL (0.6-1.0) 02/26/17 19:30 Estimated GFR 56 02/26/17 19:30 Glucose 122 mg/dL (70-100) H 02/26/17 19:30 Calcium 9.1 mg/dL (8.5-10.4) 02/26/17 19:30 Total Bilirubin 1.0 mg/dL (0.1-1.4) 02/26/17 19:30 Conjugated Bilirubin 0.3 mg/dL (0.0-0.5) 02/26/17 19:30 Unconjugated Bilirubin 0.7 mg/dL (0.0-1.1) 02/26/17 19:30 AST 26 IU/L (14-46) 02/26/17 19:30 ALT 31 IU/L (9-52) 02/26/17 19:30 Alkaline Phosphatase 106 IU/L (38-126) 02/26/17 19:30 Troponin I < 0.012 ng/mL (0.000-0.034) 02/26/17 19:30 Total Protein 6.1 g/dL (6.3-8.2) L 02/26/17 19:30 Albumin 3.5 g/dL (3.5-5.0) 02/26/17 19:30 Lipase 80 IU/L (23-300) 02/26/17 19:30 Imaging Review: Date of Service: 02/26/17 Acct Num: [id number] CT Abd Pel W IV Contrast ___ CT Abdomen and Pelvis With Contrast History: Epigastric pain. Abdominal pain. Possible SBO. History of left nephrectomy for donation. Prior appendectomy. Comparison: MR abdomen May 13, 2014, CT abdomen and pelvis November 22, 2013. Technique: Axial contrast-enhanced images were obtained through the abdomen and pelvis following the uneventful administration of 75 mL Isovue-300 intravenous contrast. Dose reduction techniques were utilized. Findings: Abdomen: Right lower lobe bulla is noted. There is a trace left pleural effusion. Heart size is normal. Coronary artery atherosclerosis is noted. Mild biliary dilatation likely related to prior cholecystectomy is unchanged. Tiny hypodensities in the liver are too small to characterize, statistically likely to represent cysts, grossly stable. The spleen, pancreas, adrenals, and right kidney are normal. The left kidney is surgically absent. The left nephrectomy bed is grossly stable. Moderate sigmoid diverticulosis is present without evidence of diverticulitis. The colon and small bowel are normal caliber. The appendix is surgically absent. There is no free fluid or air. The aorta is normal caliber with mild atherosclerosis. The IVC, hepatic, portal , splenic, and superior mesenteric veins are patent. No pathologically enlarged lymph nodes are identified. Mild degenerative change is present in the spine. Pelvis: The bladder is decompressed. Uterine contour is grossly normal. No aggressive osseous lesions are identified. Impression: 1. No acute findings in the abdomen. 2. Diverticulosis without evidence of diverticulitis. 3. Additional findings as above. Findings discussed with Kayla King today at 1058 hours. Upright Chest, PA and Lateral Views, at 9:11 AM Clinical History: 62-year-old female with epigastric discomfort which began at 4 :00 AM, with some associated shortness of breath. Comparison Studies: Abdominal radiography and MR imaging of the abdomen dated 05/13/2014, and CT imaging of the abdomen (retrieved from archive status) from 11/22/2013. Findings: Oxygen tubing and telemetry monitoring lead lines are present. There are post cholecystectomy clips in the right upper quadrant and a nephrectomy clips in the posterior left upper quadrant of the abdomen. The cardiac and mediastinal silhouette is normal in size. There is no focal infiltrate, atelectasis, peripheral interstitial edema, or pneumothorax. On the lateral view, there is blunting of the posterior costophrenic angle, which is probably is related to positioning of the hemidiaphragm, although it would be difficult to entirely exclude pleural fluid or thickening in this location. There is no free, subdiaphragmatic air. The osseous structures are age -appropriate. Impression: Blunting of the posterior costophrenic angle which could reflect positioning of the hemidiaphragm versus a small pleural effusion. Visualized and Interpreted Chest x-ray results: Yes Visualized and Interpreted EKG results: Yes EKG additional interpertation: NSR 60s. LAD. QTc 438. no acute ST changes. Assessment & Plan Assessment: Pleasant 62 yo F with pmhx significant depression/anxiety, hx diverticulosis/ itis, IBS (mixed type), cholesterol, gastritis, CAD presents with epigastric pain, nausea/vomiting. 1. abdominal pain - suspect gastroenteritis vs gastritis vs less likely ulcer vs functional abdominal pain with report of increased stressors. Patient with a previous hospitalization for similar sx 2 years ago for which full evaluation including MRI egd was negative. patient with a previous history of gastritis but does not take her ppi on a daily basis. would recommend patient begin to take daily to see if this ameliorates her symptoms. lipase negative for evidence of pancreatitis. consider use of sucralfate trial to see if this also improves her symptoms. supportive care. 2. intractable nausea/vomiting - now improved after IV anti-emetics. IV ppi as above. 3. hx diverticulosis - no evidence of diverticulitis on CT imaging earlier. no lower abdominal pain incidental findings on CT - can f/u with PCP. RLL bullae L pleural effusion (trace) CAD mild biliary dilation s/p héctor tiny hypodensities in liver likely cysts chronic medical conditions anxiety/depression - supportive care. not on antidepressant. ativan prn. CAD - nonocclusive disease. on statin. HLD - statin at discharge when nausea/vomiting controlled. benign essential HTN - continue coreg when possible SBP slightly elevated but patient asx. FEN - IVF overnight. advance diet as tolerated start on clears. electrolyte replacement if needed. PPX - SCDs. holding anticoagulation anticipating short stay. COR - FULL. pt desires Eleazar Cannon to act as proxy if needed. Dispo - Admit to observation on medical floor. anticipate short hospital stay once patient sx controlled. Patient amenable to this plan.
[2017-02-27] MEDS: SUCRALFATE 1 GM/10 ML UDCUP PO SCH ×4 (02:46→17:15)
[2017-02-27 05:12] LABS: % IMMATURE GRANULYOCYTES 0.5 % (0.0-1.1); ABSOLUTE IMMATURE GRANULOCYTES 0.04 10^3/uL (0.00-0.10); ADD DIFF? NO; ADD MORPH? NO; ADD SCAN? NO; ATYPICAL LYMPHOCYTE FLAG 0 (0-99); FRAGMENT RBC FLAG 0 (0-99); HEMATOCRIT 38.3 % (38.0-47.0); HEMOGLOBIN 12.9 g/dL (12.6-16.3); LEFT SHIFT FLG 0 (0-99); LIPEMIA HEMOLYSIS FLAG 80 (0-99); MEAN CELL HEMOGLOBIN 29.2 pg (27.9-34.1); MEAN CELL HEMOGLOBIN CONCENTR. 33.7 g/dL (32.4-36.7); MEAN CELL VOLUME 86.7 fL (81.5-99.8); MEAN PLATELET VOLUME 9.9 fL (8.7-11.7); PLATELET CLUMPS FLAG 0 (0-99); PLATELET COUNT 210 10^3/uL (150-400); RED BLOOD CELL COUNT 4.42 10^6/uL (4.18-5.33); RED CELL DISTRIBUTION WIDTH 13.4 % (11.5-15.2)
[2017-02-27 06:14] LABS: ALANINE AMINOTRANSFERASE 32 IU/L (9-52); ALBUMIN 3.3 g/dL (3.5-5.0); ALKALINE PHOSPHATASE 101 IU/L (38-126); ANION GAP 13 mEq/L (8-16); ASPARTATE AMINOTRANSFERASE 24 IU/L (14-46); BILIRUBIN,TOTAL 0.8 mg/dL (0.1-1.4); CALCIUM 8.8 mg/dL (8.5-10.4); CARBON DIOXIDE 21 mEq/l (22-31); CHLORIDE 110 mEq/L (97-110); CREATININE 0.9 mg/dL (0.6-1.0); GLOMERULAR FILTRATION RATE > 60; GLUCOSE 91 mg/dL (70-100); MAGNESIUM 2.1 mg/dL (1.6-2.3); POTASSIUM 4.1 mEq/L (3.5-5.2); SODIUM 144 mEq/L (134-144); TOTAL PROTEIN 5.8 g/dL (6.3-8.2)
[2017-02-27] MEDS: PANTOPRAZOLE SODIUM 40 MG VIAL IVP SCH (08:22)
--- NOTE | 2017-02-27 09:31 | ASMTCASEMG ---
Living Arrangements What is your living Answers: With Spouse arrangement? Who do you live with? Type Of Residence What kind of residence do Answers: House you live in? Discharge Plan Comments Coordination Status Comments Notes: Pt is a 62 y/o female admitted for epigastric pain and nausea. Pt will most likely discharge independent when medically stable w/ supportive . No therapies ordered at this time. CM available for d/c needs. Plan: Independent Date Signed: 02/27/2017 09:30 AM Electronically Signed By:ROBEL Koch
--- NOTE | 2017-02-27 14:28 | HOSPPROG ---
Hospitalist Progress Note Assessment/Plan: 62 yo F with hx of IBS, depression, anxiety as well as diverticulitis/osis and gastritis presenting with abdominal pain as well as n/v # abdominal pain/n/v: on personal review of imaging, no acute findings to explain her sxs, has not had vomiting today thus far, continued mild midepigastric pain that has improved and that patient states is not unusual for her. Suspect gastritis versus gastroenteritis. Although her sxs have improved patient continues to be unable to tolerate much PO. When she is able to take appropriate amounts of oral would discharge her home or consider further w/u if not improving overnight. She had similar issues in the past and had significant w/u that was unremarkable. # IBS: with hx of chronic abdominal issues related to same, suspect some component of above is related to her underlying IBS # CAD: non obstructive, continue bb, asa, statin # depression/anxiety: stable, euthymic # dispo: observation status, likely will be ready for dc on 02/28 so long as sxs continue to improve Patient new to my care. Old records reviewed and summarized as above. Care plan reviewed with patients present at bedside. Subjective: no significant overnight events, patient is feeling slightly better today though still not tolerating much by mouth Objective: Vital Signs Temp Pulse Resp BP Pulse Ox 36.9 C 70 12 145/77 H 93 02/27/17 12:00 02/27/17 12:00 02/27/17 12:00 02/27/17 12:00 02/27/17 13:20 Laboratory Results 02/27/17 04:50 02/27/17 04:50 02/26/17 02/27/17 02/28/17 05:59 05:59 05:59 Intake Total 1000 Balance 1000 awake alert nad anicteric op clear rrr no mrg cta b soft bs present min ttp mid epigastric region no cce warm dry well perfused oriented appropriate ICD10 Worksheet Patient Problems: Problems Problem Status Onset Abdominal pain Acute Chest pain Acute
[2017-02-27] MEDS ORDERED: LORazepam 0.5 MG TAB PO PRN (14:32)
[2017-02-27] MEDS ORDERED: DOCUSATE SODIUM 100 MG CAP PO PRN (14:32)
[2017-02-27] MEDS ORDERED: PANTOPRAZOLE SODIUM 40 MG TAB PO PRN (14:32)
[2017-02-27] MEDS ORDERED: ONDANSETRON DISINTEGRATING 4 MG TAB PO PRN (14:32)
[2017-02-27 16:00] VITALS: BP 131/81; PULSE 73; RESP 20; TEMP 98.3
--- NOTE | 2017-02-27 16:51 | PDDCSUM ---
Discharge Summary Discharge Summary: Dates of service 02/26-02/27/17 Procedures: abd ct Consultations: none Hospital course by problem: 62 yo F with hx of IBS, depression, anxiety as well as diverticulitis/osis and gastritis presenting with abdominal pain as well as n/v # abdominal pain/n/v: largely resolved, hx of similar issues in the past, imaging unremarkable, suspect related to gastroenteritis/gastritis with likely functional component # IBS: with hx of chronic abdominal issues related to same, suspect some component of above is related to her underlying IBS # CAD: non obstructive, continue bb, asa, statin # depression/anxiety: stable, euthymic # dispo: discharge home, f/u with PCP
[2017-02-27 17:43] VITALS: O2SAT 94
[2017-02-27] MEDS ORDERED: CARVEDILOL 6.25 MG TAB PO SCH (18:00)
[2017-02-27] MEDS ORDERED: ATORVASTATIN CALCIUM 20 MG TAB PO SCH (21:00)
[2017-02-28] MEDS ORDERED: ASPIRIN EC 81 MG TAB PO SCH (09:00)
--- NOTE | 2017-02-28 14:06 | ASDISCHSUM ---
Discharge Information Plan Status:Home with No Needs Medically Cleared to Leave:02/27/2017 Discharge Date:02/27/2017 05:30 PM CM D/C Disposition: ADT D/C Disposition:Home, Routine, Self-Care Projected Discharge Date:02/28/2017 12:00 AM Transportation at D/C: Discharge Delay Reason: Follow-Up Date:02/28/2017 12:00 AM Discharge Slot: Final Diagnosis: Placement Information Patient Contact Information Contact Name:EMILIANO Relationship: Address: [place] City:[place] Phone: State/Zip Code:[place] [address] Email: Financial Information Financial Class:HMO and PPO Plans Primary Plan Desc:[employer] PPO Primary Plan Number:[id number] Secondary Plan Desc: Secondary Plan Number: Assessment Information [facility] Initial CM Assessment Living Arrangements What is your living Answers: With Spouse arrangement? Who do you live with? Type Of Residence What kind of residence do Answers: House you live in? Discharge Plan Comments Coordination Status Comments Notes: Pt is a 62 y/o female admitted for epigastric pain and nausea. Pt will most likely discharge independent when medically stable w/ supportive . No therapies ordered at this time. CM available for d/c needs. Plan: Independent Date Signed: 02/27/2017 09:30 AM Electronically Signed By:ROBEL Koch Intervention Information
== END 2017-02-27 17:30 | disposition home or self-care (01) ==
LOC: F3E 21:36
PROVIDERS: ADMIT Student in an Organized Health Care Education/Training Program; ATTEND Internal Medicine
DX: R10.13 Epigastric pain (principal); K58.9 Irritable bowel syndrome, unspecified; R11.2 Nausea with vomiting, unspecified; I25.10 Atherosclerotic heart disease of native coronary artery without angina pectoris; F32.9 Major depressive disorder, single episode, unspecified; F41.9 Anxiety disorder, unspecified; I10 Essential (primary) hypertension; E78.5 Hyperlipidemia, unspecified; Z90.5 Acquired absence of kidney; Z79.82 Long term (current) use of aspirin; Z87.891 Personal history of nicotine dependence; Z80.3 Family history of malignant neoplasm of breast
CPT/HCPCS: 93005; G0378; 96374; J1630; J2765

== ENCOUNTER 2017-07-22 14:24 | Observation (INO) | payer OTHER ==
[2017-07-22] MEDS ORDERED: LIDOCAINE 2% VISCOUS 15 ML UDCUP PO ONE (14:35)
[2017-07-22] MEDS ORDERED: NS 1,000 ML IV ONE (14:35)
[2017-07-22] MEDS ORDERED: MAG HYDROX/AL HYDROX/SIMETH 30 ML UDCUP PO ONE (14:35)
[2017-07-22] MEDS ORDERED: HYOSCYAMINE SULFATE 0.125 MG TAB PO ONE (14:35)
[2017-07-22] MEDS ORDERED: FAMOTIDINE 20 MG/NACL 50 ML IV ONE (14:35)
--- NOTE | 2017-07-22 14:41 | EDPHY ---
HPI/HX/ROS/PE/MDM Narrative: CHIEF COMPLAINT: Epigastric pain, vomiting HPI: This patient is a 62 year old female with past medical history significant for IBS, diverticulitis, and gastritis. She presents with today with severe epigastric pain, nausea, and vomiting. Symptoms began two days ago and wax and wane. They resolve slightly after she vomits. The pain is "knife-like" and "burning". She has taken Protonix and Zofran for relief. She does not take a PPI regularly. The patient denies fever. No blood in emesis or stool. Symptoms are consistent with prior episodes of gastritis. No abnormal foods, water sources, or ill contacts. She was admitted to this hospital five months ago for similar symptoms. REVIEW OF SYSTEMS: Aside from elements discussed in the HPI, a comprehensive 10-point review of systems was reviewed and is negative. PMH: IBS, Diverticulitis, Hyperlipidemia, CAD (nonocclusive), Gastritis, Cholecystectomy, Appendectomy, Depression/anxiety, History of bleeding duodenal ulcer in childhood. Reviewed past medical records including admission 02/26/17 for similar symptoms including epigastric pain and nausea. SOCIAL HISTORY: . at bedside. Lives in [place]. Former smoker. Director Of Math: Dr. Asif. PHYSICAL EXAM: General:Patient is alert, in no acute distress. ENT:Eyes are normal to inspection. ENT inspection normal. Neck: Normal inspection. Full range of motion. Respiratory:No respiratory distress. Breath sounds normal bilaterally. Cardiovascular: Regular rate and rhythm. Strong peripheral pulses. Normal cap refill. Abdomen: Moderate to severe epigastric tenderness. There are no peritoneal signs. There are normal bowel sounds. Back: Normal to inspection. No tenderness to palpation. Skin: Normal color. No rash. Warm and dry. Extremities: Normal appearance. Full range of motion. Neuro: Oriented x3. Normal motor function. Normal sensory function. ED Course: 62 y/o female with history of IBS, diverticulitis, and gastritis presents with 2 day history of epigastric pain, nausea, and vomiting. Plan for EKG, x-ray abdomen, labs including CBC, chemistries, troponin, liver, lipase. Plan to administer GI cocktail and 1L IVF for symptom relief. 14:51 Reviewed x-ray abdomen. Air-fluid levels noted in bowels. Plan for CT to r /o obstruction or other acute processes. Surgical clips from patient's prior abdominal surgeries including left nephrectomy noted. WBC elevated at 15,000. 14:57 Plan to administer 4mg IV Zofran for nausea relief. 15:40 Plan to administer 1g IV Dilaudid for pain relief. 17:10: CT reported to me by Dr. De Jesus as negative for acute process. No obstruction noted. 17:15 Plan to administer an additional 4mg IV Zofran, 1mg IV Ativan, and 20mg PO Bentyl for further symptom relief. 18:35 Patient continues to report 7/10 pain despite multiple medications and has been unable to drink water. She would like to be admitted for further management. Plan to consult with hospitalist service. 18:[address] Love, hospitalist. He accepts admission for abdominal pain. - Data Points Imaging Results: Imaging Impressions Abdomen X-Ray 07/22/17 14:36 Impression: 1. No significantly dilated loops of bowel within the abdomen. 2. Previous left nephrectomy. Abdomen/Pelvis CT 07/22/17 15:31 Impression: 1. Status post cholecystectomy, left nephrectomy, and appendectomy. 2. Sigmoid colon diverticulosis without active diverticulitis. Attention: This CT examination is specifically designed to evaluate patients who are clinically suspected of having acute obstructive uropathy. This examination does not use radiographic contrast, and as such, provides only a limited evaluation of the abdomen, pelvis, and retroperitoneum. If there is further clinical suspicion for pathological conditions, a complete CT evaluation of the abdomen and pelvis utilizing intravenous, oral, and rectal contrast should be considered. Findings were discussed with Eleazar Silva MD at 17:07, on 07/22/2017. Imaging: I viewed and interpreted images myself Laboratory Results: Laboratory Results 07/22/17 14:35 07/22/17 14:35 07/22/17 07/22/17 14:35 14:35 WBC 14.85 10^3/uL H 10^3/uL (3.80-9.50) RBC 5.13 10^6/uL 10^6/uL (4.18-5.33) Hgb 15.0 g/dL g/dL (12.6-16.3) Hct 43.8 % % (38.0-47.0) MCV 85.4 fL fL (81.5-99.8) MCH 29.2 pg pg (27.9-34.1) MCHC 34.2 g/dL g/dL (32.4-36.7) RDW 13.9 % % (11.5-15.2) Plt Count 245 10^3/uL 10^3/uL (150-400) MPV 9.9 fL fL (8.7-11.7) Neut % (Auto) 91.0 % H % (39.3-74.2) Lymph % (Auto) 4.4 % L % (15.0-45.0) [place] % (Auto) 3.4 % L % (4.5-13.0) Eos % (Auto) 0.5 % L % (0.6-7.6) Baso % (Auto) 0.2 % L % (0.3-1.7) Nucleat RBC Rel Count 0.0 % % (0.0-0.2) Absolute Neuts (auto) 13.50 10^3/uL H 10^3/uL (1.70-6.50) Absolute Lymphs (auto) 0.66 10^3/uL L 10^3/uL (1.00-3.00) Absolute Monos (auto) 0.51 10^3/uL 10^3/uL (0.30-0.80) Absolute Eos (auto) 0.08 10^3/uL 10^3/uL (0.03-0.40) Absolute Basos (auto) 0.03 10^3/uL 10^3/uL (0.02-0.10) Absolute Nucleated RBC 0.00 10^3/uL 10^3/uL (0-0.01) Immature Gran % 0.5 % % (0.0-1.1) Immature Gran # 0.07 10^3/uL 10^3/uL (0.00-0.10) Sodium 143 mEq/L mEq/L (135-145) Potassium 4.1 mEq/L mEq/L (3.5-5.2) Chloride 107 mEq/L mEq/L (97-110) Carbon Dioxide 20 mEq/l L mEq/l (22-31) Anion Gap 16 mEq/L mEq/L (8-16) BUN 16 mg/dL mg/dL (7-23) Creatinine 0.8 mg/dL mg/dL (0.6-1.0) Estimated GFR > 60 Glucose 112 mg/dL H mg/dL (70-100) Calcium 9.3 mg/dL mg/dL (8.5-10.4) Total Bilirubin 1.3 mg/dL mg/dL (0.1-1.4) Conjugated Bilirubin 0.3 mg/dL mg/dL (0.0-0.5) Unconjugated Bilirubin 1.0 mg/dL mg/dL (0.0-1.1) AST 32 IU/L IU/L (14-46) ALT 43 IU/L IU/L (9-52) Alkaline Phosphatase 127 IU/L H IU/L (38-126) Troponin I < 0.012 ng/mL ng/mL (0.000-0.034) Total Protein 7.0 g/dL g/dL (6.3-8.2) Albumin 4.0 g/dL g/dL (3.5-5.0) Lipase 227 IU/L IU/L (23-300) Medications Given: Discontinued Medications Al Hydroxide/Mg Hydroxide (Maalox Susp) 30 ml PO ONCE ONE Stop: 07/22/17 14:36 Last Admin: 07/22/17 14:44 Dose: 30 ml Dicyclomine HCl (Bentyl) 20 mg PO EDNOW ONE Stop: 07/22/17 17:16 Last Admin: 07/22/17 17:30 Dose: 20 mg Hydromorphone HCl (Dilaudid) 1 mg IVP EDNOW ONE Stop: 07/22/17 15:37 Last Admin: 07/22/17 15:41 Dose: 1 mg Hyoscyamine Sulfate (Levsin, Hyomax-Sl) 0.25 mg PO ONCE ONE Stop: 07/22/17 14:36 Last Admin: 07/22/17 14:44 Dose: 0.25 mg Sodium Chloride (Ns) 1,000 mls @ 0 mls/hr IV EDNOW ONE; Wide Open PRN Reason: Protocol Stop: 07/22/17 14:36 Last Admin: 07/22/17 14:45 Dose: 1,000 mls Famotidine/Sodium Chloride (Pepcid 20 Mg (Premix)) 50 mls @ 200 mls/hr IV EDNOW ONE Stop: 07/22/17 14:49 Last Admin: 07/22/17 14:45 Dose: 50 mls Lidocaine (Lidocaine 2% Viscous) 15 ml PO ONCE ONE Stop: 07/22/17 14:36 Last Admin: 07/22/17 14:44 Dose: 15 ml Lorazepam (Ativan Injection) 1 mg IVP EDNOW ONE Stop: 07/22/17 17:16 Last Admin: 07/22/17 17:30 Dose: 1 mg Ondansetron HCl (Zofran) 4 mg IVP EDNOW ONE Stop: 07/22/17 14:58 Last Admin: 07/22/17 15:00 Dose: 4 mg Ondansetron HCl (Zofran) 4 mg IVP EDNOW ONE Stop: 07/22/17 17:12 Last Admin: 07/22/17 17:12 Dose: 4 mg General Initial Vital Signs: Initial Vital Signs Temperature (C) 36.7 C 07/22/17 14:26 Heart Rate 86 07/22/17 14:26 Respiratory Rate 18 07/22/17 14:26 Blood Pressure 117/82 H 07/22/17 14:26 O2 Sat (%) 96 07/22/17 14:26 O2 Delivery Mode Room Air Allergies/Adverse Reactions: morphine Allergy (Intermediate, Verified 07/22/17 14:26) hallucinations Home Medications: Medication Instructions Recorded Atorvastatin Calcium [Lipitor 20 20 mg PO HS 11/20/15 mg (*)] Carvedilol [Coreg (*)] 6.25 mg PO BIDMEAL 11/20/15 Docusate Sodium [Colace 100 MG (*)] 100 mg PO DAILY PRN 11/20/15 Herbals/Supplements -Info Only 1 ea PO DAILY 11/20/15 Ondansetron Odt [Zofran Odt 4 mg 4 mg PO Q4 PRN #10 tab 11/20/15 (*)] Pantoprazole Sodium [Protonix 40mg 40 mg PO DAILY PRN 11/20/15 (*)] Aspirin EC [Aspirin EC 81 mg (*)] 81 mg PO DAILY 02/26/17 LORazepam [Ativan (*)] 0.5 mg PO DAILY PRN 02/26/17 Departure - Departure Disposition: [facility] Clinical Impression: Abdominal pain Qualifiers: Abdominal location: epigastric Qualified Code(s): R10.13 - Epigastric pain Nausea and vomiting Qualifiers: Vomiting type: unspecified Vomiting Intractability: unspecified Qualified Code( s): R11.2 - Nausea with vomiting, unspecified Condition: Fair Report Scribed for: Eleazar Silva Report Scribed by: Heidi Oglesby Date of Report: 07/22/17 Time of Report: 14:41 Physician Review and Approval Statement: Portions of this note were transcribed by an ED scribe. I personally performed the history, physical exam, and medical decision making; and confirm the accuracy of the information in the transcribed note.
[2017-07-22 14:45] LABS: PLATELET COUNT 245 10^3/uL (150-400)
[2017-07-22] MEDS ORDERED: ONDANSETRON 4 MG/2 ML VIAL IVP ONE ×2 (14:57→17:11)
[2017-07-22] MEDS ORDERED: HYDROmorphONE/DILAUDID 2 MG/ML INJ IVP ONE (15:36)
[2017-07-22] MEDS ORDERED: HYDROmorphONE/DILAUDID 1 MG/ML INJ ONE (15:37)
--- NOTE | 2017-07-22 15:50 | CPEKG ---
Heart Rate: 75 RR Interval: 800 P-R Interval: 144 QRSD Interval: 88 QT Interval: 416 QTC Interval: 465 P Eden: 21 QRS Eden: -19 T Wave Eden: 44 EKG Severity - OTHERWISE NORMAL ECG - EKG Impression: SINUS RHYTHM EKG Impression: BORDERLINE LEFT AXIS DEVIATION Electronically Signed By: Dominguez Huddleston 24-Jul-2017 08:30:20
[2017-07-22] MEDS ORDERED: ONDANSETRON 4 MG/2 ML VIAL ONE (17:10)
[2017-07-22] MEDS ORDERED: LORazepam 2 MG/ML INJ IVP ONE (17:15)
[2017-07-22] MEDS ORDERED: DICYCLOMINE 10 MG CAP PO ONE (17:15)
[2017-07-22] MEDS ORDERED: PROMETHAZINE HCL 25 MG/ML INJ IVP PRN (19:58)
[2017-07-22] MEDS ORDERED: ONDANSETRON DISINTEGRATING 4 MG TAB PO PRN (19:58)
[2017-07-22] MEDS ORDERED: DICYCLOMINE 10 MG CAP PO PRN (20:00)
[2017-07-22] MEDS ORDERED: PANTOPRAZOLE SODIUM 40 MG TAB PO PRN (20:00)
[2017-07-22] MEDS ORDERED: NS 1,000 ML IV SCH (20:00)
[2017-07-22] MEDS ORDERED: ACET/CAFFEINE/BUTA FIORICET 1 EACH TAB PO PRN (20:00)
[2017-07-22] MEDS ORDERED: SIMETHICONE DROPS 30 ML BOTTLE PO PRN (20:05)
[2017-07-22] MEDS: ONDANSETRON 4 MG/2 ML VIAL IVP PRN (20:30)
[2017-07-22] MEDS: ACETAMINOPHEN 325 MG TAB PO PRN (20:30)
--- NOTE | 2017-07-22 20:35 | GHP ---
[f rep st] HISTORY AND PHYSICAL DATE OF ADMISSION: 07/22/2017 HISTORY OF PRESENT ILLNESS: The patient is a pleasant 62-year-old female, history of irritable bowel syndrome, presents with abdominal pain. It started this morning. She describes it as cramping. [place] young has had a couple small bowel movements. She has had some nausea, no vomiting. She has not been ab le to eat much, not had fever or chills. Also, in the emergency department, she described the pain a s knife-like and burning. She takes a PPI irregularly. Notably, her daughter recently had an episode of nausea, vomiting, and diarrhea that occurred overnig ht Sunday into Sunday. She attributed this to eating seafood at the buffet at [place]. The mot her helped clean up some of the vomit. REVIEW OF SYSTEMS: Complete 10-point review of systems conducted; negative except as noted in the HP I. PAST MEDICAL HISTORY: 1. Irritable bowel syndrome with pain as her predominant symptom. 2. History of diverticulitis/diverticulosis. 3. History of cholecystectomy, gastritis, coronary artery disease on medical management, elective ne phrectomy for which she donated a kidney to her sister, . FAMILY HISTORY: Brother had leukemia. Older sister with breast cancer. SOCIAL HISTORY: She quit smoking 20 years ago. Alcohol: She does not drink alcohol. , live s with her ; he is currently out of town. ALLERGIES: Morphine. MEDICATIONS: Home medications are ondansetron, Fioricet, aspirin, atorvastatin, carvedilol, dicyclom ine, docusate, fluticasone, lorazepam, pantoprazole. PHYSICAL EXAMINATION: VITAL SIGNS: Temp 36.7, blood pressure 117/82, pulse 86, breathing 18 times a minute, 96% on room air. GENERAL: No acute distress. HEENT: Sclerae anicteric. Oropharynx clear . Mucous membranes moist. NECK: Supple without lymphadenopathy or JVD. LUNGS: Clear to auscultat ion bilaterally. HEART: S1, S2. Not tachycardic. ABDOMEN: Soft. Bowel sounds are present, but h ypoactive. It is slightly distended. It is nontender. There is no rebound or guarding. EXTREMITIE S: Lower extremities without edema. Calves nontender. SKIN: Without rash. NEUROLOGIC: Nonfocal. LABS: White count is 14.8. Hematocrit is 44, platelets are 245,000. Sodium 143, potassium 4.1, chl oride 107, bicarb 20, BUN 16, creatinine 0.8, glucose 112. LFTs normal other than slightly elevated alkaline phosphatase at 112. Troponin less than 0.012. Abdominal interpreted by me shows a couple o f air-fluid levels, but otherwise unremarkable. IMAGING: Abdominal CT images reviewed, interpreted by me, shows status post cholecystectomy, nephrec shahid, and appendectomy. Sigmoid diverticulosis. There is no acute process. I discussed the case wi th Dr. Eleazar Silva. ASSESSMENT AND PLAN: A 62-year-old female with irritable bowel syndrome, presents with abdominal lorrie n. 1. Abdominal pain. I suspect this is either functional or the beginning of a viral gastroenteritis. The fact that her daughter had symptoms shortly after eating at the buffet in [place] could be i ndicative of toxin borne food illness, which she should probably not be a risk for, or perhaps she gray s a viral illness that just happened to show up at that time. I have ordered a GI panel should she d eveloped nausea, vomiting, and diarrhea. Regarding symptomatic relief, we will try simethicone, anti emetics, will hold on narcotics. 2. Coronary disease. Continue her aspirin, statin, beta nichole. 3. Irritable bowel syndrome. We will continue her Bentyl as prescribed. We will continue the PPI a s prescribed. 4. Prophylaxis. Pharmacologic prophylaxis indicated. I have started her on enoxaparin. DISPOSITION: Observation status. /[id number]/MODL
[2017-07-22] MEDS ORDERED: ATORVASTATIN CALCIUM 20 MG TAB PO SCH (21:00)
[2017-07-22] MEDS: LORazepam 0.5 MG TAB PO PRN (21:57)
[2017-07-23 04:20] LABS: PLATELET COUNT 178 10^3/uL (150-400)
[2017-07-23] MEDS: ONDANSETRON 4 MG/2 ML VIAL IVP PRN (05:33)
[2017-07-23] MEDS: ACETAMINOPHEN 325 MG TAB PO PRN ×2 (05:34→14:51)
[2017-07-23] MEDS: LORazepam 0.5 MG TAB PO PRN (06:18)
[2017-07-23] MEDS ORDERED: CARVEDILOL 6.25 MG TAB PO SCH (08:00)
[2017-07-23] MEDS ORDERED: Herbals/Supplements -Info Only PO SCH (09:00)
[2017-07-23] MEDS ORDERED: FLUTICASONE NASAL 120 SPRAYS/16 GM MDI NS SCH (09:00)
[2017-07-23] MEDS ORDERED: ENOXAPARIN 40 MG/0.4 ML SYR SC SCH (09:00)
[2017-07-23] MEDS ORDERED: DOCUSATE SODIUM 100 MG CAP PO SCH (09:00)
[2017-07-23] MEDS ORDERED: ASPIRIN EC 81 MG TAB PO SCH (09:00)
[2017-07-23 12:56] VITALS: BP 111/73
--- NOTE | 2017-07-23 15:37 | PDDCSUM ---
Discharge Summary Discharge Summary: Dates of service 07/22-07/23/17 Procedures: abdominal xray, abdominal CT Consultations: none Hospital course by problem: # abdominal pain: suspect related to viral gastrenteritis, resolved overnight. Abd CT without acute findings, tolerating diet, ambulating, having BM. Patient feeling ready to dc home # hx of CAD: no changes to her usual medications DC home f/u with PCP
--- NOTE | 2017-07-23 16:13 | ASMTLACE ---
LACE Length of stay for Answers: Less than 1 day current admission Acuity / Level of Answers: No Care: Did the patient have an inpatient admission? Comorbidities - select Answers: Other Notes: IBS all that apply # of Emergency department Answers: 1-2 visits in the last 6 months Score: 2 Date Signed: 07/23/2017 04:12 PM Electronically Signed By:Francesca Donaldson RN
--- NOTE | 2017-07-23 16:15 | ASMTCMCOM ---
CM Note CM Note Notes: Patient medically cleared for discharge to home. No identified needs, CM available should needs arise. Plan: Home independent. Date Signed: 07/23/2017 04:14 PM Electronically Signed By:Francesca Donaldson RN
== END 2017-07-23 17:33 | disposition home or self-care (01) ==
LOC: F1N 20:00
PROVIDERS: ADMIT Internal Medicine; ATTEND Internal Medicine
DX: R10.13 Epigastric pain (principal); K58.9 Irritable bowel syndrome, unspecified; E78.5 Hyperlipidemia, unspecified; Z87.891 Personal history of nicotine dependence; I25.10 Atherosclerotic heart disease of native coronary artery without angina pectoris; Z90.5 Acquired absence of kidney
CPT/HCPCS: 74018; 74176; 93005; G0378; 96374; J1170; J1650; J2060; J2405; J2550

== ENCOUNTER 2017-11-10 10:42 | Emergency (ER) | payer OTHER ==
[2017-11-10] MEDS ORDERED: NS 1,000 ML IV ONE (11:00)
--- NOTE | 2017-11-10 11:14 | EDPHY ---
General Time Seen by Provider: 11/10/17 11:00 Narrative: CHIEF COMPLAINT: Fall, head injury, ankle pain HISTORY OF PRESENT ILLNESS: Patient presents by EMS with complaints of fall, head injury, headache and ankle pain. She says she was working in the yard when she accidentally rolled her right ankle, causing her to fall backwards. She reports falling onto concrete and striking the back of her head 1st. She denies loss of consciousness but has significant headache, hematoma to the back of the scalp and some dizziness. She was nauseated pre-hospital which has resolved with Zofran. No vomiting. No diplopia. No neck pain or stiffness. No numbness, tingling or weakness. No incontinence of bowel or bladder. No seizure activity described by EMS. She has mild right ankle pain that is improving. No pain in the hips, knees or feet. No anticoagulation use other than 81 mg aspirin. No other associated complaints or modifying factors REVIEW OF SYSTEMS: 10 systems were reviewed and negative with the exception of the elements mentioned in the history of present illness. PCP: Dr. Cui SPECIALISTS: None PAST MEDICAL HISTORY: Hypertension, dyslipidemia PAST SURGICAL HISTORY: Right cataract surgery this week SOCIAL HISTORY: Nonsmoker. Lives independently with her spouse in [place] FAMILY HISTORY: Noncontributory EXAMINATION: General Appearance: Alert, no distress Head: normocephalic. 5 cm occipital and right posterior scalp hematoma without laceration. No Jain sign. No raccoon eyes. Eyes: Pupils equal and round, no conjunctival pallor or injection ENT, Mouth: Mucous membranes moist Neck: Normal inspection, supple, non-tender Respiratory: Lungs are clear to auscultation Cardiovascular: Regular rate and rhythm. No murmur. Good signs of perfusion distally. Gastrointestinal: Abdomen is soft and nontender Back: non-tender, no bony abnormalities Neurological: A&O, nonfocal, normal gait Skin: Warm and dry, no rash Extremities: Mild tenderness of the right ankle over the medial lateral malleoli. There is no tenderness of the shoulders, elbows, wrists, hips, knees or calcanei. Range of motion of the extremities is symmetric. Psychiatric: Mood and affect normal DIFFERENTIAL DIAGNOSES: Including but not limited to skull fracture, concussion, cerebral edema, subarachnoid hemorrhage, subdural hematoma, epidural hematoma, scalp hematoma, cervical sprain, cervical strain, ankle sprain, ankle fracture MDM: 11:00 a.m. mechanical fall with closed head injury on concrete just prior to arrival. She denies loss of consciousness but has significant headache, a large occipital hematoma and some dizziness. I do feel she warrants CT scan of the head given her injury and symptomatology. This has been ordered. I will also order 1 L IV fluid and x-ray the right ankle. She is awake and alert no acute distress. 11:20a.m. X-ray of the ankle as read by me reveals a nondisplaced fracture of the base of the 5th metatarsal. I re-evaluated the patient and this does clinically correlate, thus I have ordered a dedicated foot film per 11:50 a.m. Notified by radiologist Dr. Raymond. CT scans of the head cervical spine reveal chronic changes and a scalp hematoma. We also discussed the ankle x-ray with nondisplaced 5th metatarsal fracture. Also notified of incidental thyroid nodules, recommending outpatient ultrasound of follow-up with primary care physician. No emergent imaging recommended. I have notified the patient of this. She states that she had a ultrasound and biopsy of the thyroid in the past that was reportedly benign. She will follow up with primary care physician for this. Will place her in a [place] boot and attempt to ambulate her. 12:30 p.m. Patient has been sitting on the side of the bed but feels very dizzy and still has a headache. We have ordered Tylenol by mouth. We will attempt to ambulate. 12:45 p.m. I re-evaluated the patient after attempted ambulation. She says she still feels some pain at the hematoma and some lightheadedness and dizziness, but she would like to try and go home. We discussed head injury precautions, rest, ice and I will prescribe Fioricet with out any codeine in it. We discussed ongoing Tylenol but to monitor her total intake per day. We discussed follow up with orthopedist for the foot fracture. We discussed ED precautions should she not tolerate her headache at home. She is comfortable this plan and would like to go home with her spouse at this time. SUPERVISION: Patient was independently examined, but I discussed the case with my secondary supervising physician Dr. Cancino CONSULTATION: None - Diagnostics Imaging Results: Imaging Impressions Cervical Spine CT 11/10/17 10:59 Impression: 1. No acute osseous findings. If there is persistent pain or neurologic deficit , consider MRI and/or flexion and extension views if clinically indicated. 2. Degenerative change most prominent from C5 to C7, with moderate spinal canal narrowing. 3. Nodular thyroid, for which thyroid ultrasound is recommended unless this has been previously performed at an outside facility. Findings discussed with Zak Alva on 11/10/2017 at 11:47. Head CT 11/10/17 10:59 Impression: 1. No acute intracranial findings. 2. Diffuse cerebral atrophy with periventricular and subcortical low attenuation consistent with chronic microvascular ischemic gliosis. Findings discussed with Zak Alva 11/10/2017 at 11:47. Ankle X-Ray 11/10/17 11:14 Impression: 1. Acute nondisplaced fracture through the base of 5th metatarsal. 2. Additional findings as above. Findings discussed with Zak Alva 11/10/2017 at 11:47. - History Smoking Status: Former smoker - Objective Vital Signs: Initial Vital Signs Temperature (C) 98.4 F 11/10/17 10:49 Heart Rate 69 11/10/17 10:49 Respiratory Rate 16 11/10/17 10:49 Blood Pressure 139/81 H 11/10/17 10:49 O2 Sat (%) 89 L 11/10/17 10:49 O2 Delivery Mode Nasal Cannula O2 (L/minute) 2 Allergies/Adverse Reactions: morphine Allergy (Intermediate, Verified 07/22/17 14:26) hallucinations Home Medications: Medication Instructions Recorded Atorvastatin Calcium [Lipitor 20 20 mg PO HS 11/20/15 mg (*)] Carvedilol [Coreg (*)] 6.25 mg PO BIDMEAL 11/20/15 Docusate Sodium [Colace 100 MG (*)] 200 mg PO DAILY 11/20/15 Herbals/Supplements -Info Only 1 ea PO DAILY 11/20/15 Ondansetron Odt [Zofran Odt 4 mg 4 mg PO Q4 PRN #10 tab 11/20/15 (*)] Pantoprazole Sodium [Protonix 40mg 40 mg PO DAILY PRN 11/20/15 (*)] Aspirin EC [Aspirin EC 81 mg (*)] 81 mg PO DAILY 02/26/17 LORazepam [Ativan (*)] 0.25 mg PO DAILY PRN 02/26/17 Acet/Caffeine/Buta Fioricet 1 each PO DAILY PRN 07/22/17 [Fioricet (*)] Dicyclomine HCl 10 mg PO TID PRN 07/22/17 Fluticasone Nasal [Flonase Nasal 1 sprays NASAL DAILY 07/22/17 [place]] Acet/Caffeine/Buta Fioricet 1 each PO Q6 PRN #12 tab 11/10/17 [Fioricet (*)] Medications Given: Discontinued Medications Acetaminophen (Tylenol) 650 mg PO EDNOW ONE Stop: 11/10/17 12:30 Last Admin: 11/10/17 12:32 Dose: 650 mg Fentanyl (Sublimaze) 100 mcg IVP EDNOW ONE Stop: 11/10/17 11:19 Last Admin: 11/10/17 11:24 Dose: 100 mcg Sodium Chloride (Ns) 1,000 mls @ 0 mls/hr IV EDNOW ONE; Wide Open PRN Reason: Protocol Stop: 11/10/17 11:01 Last Admin: 11/10/17 11:02 Dose: 1,000 mls Ondansetron HCl (Zofran) 4 mg IVP EDNOW ONE Stop: 11/10/17 11:22 Last Admin: 11/10/17 11:24 Dose: 4 mg Departure - Departure Disposition: Home, Routine, Self-Care Clinical Impression: Multiple thyroid nodules Closed head injury without loss of consciousness Qualifiers: Encounter type: initial encounter Qualified Code(s): S09.90XA - Unspecified injury of head, initial encounter Traumatic hematoma of scalp Qualifiers: Encounter type: initial encounter Qualified Code(s): S00.03XA - Contusion of scalp, initial encounter Fracture of metatarsal of right foot, closed Qualifiers: Encounter type: initial encounter Metatarsal bone: fifth Fracture alignment: nondisplaced Qualified Code(s): S92.354A - Nondisplaced fracture of fifth metatarsal bone, right foot, initial encounter for closed fracture Right ankle sprain Qualifiers: Encounter type: initial encounter Involved ligament of ankle: unspecified ligament Qualified Code(s): S93.401A - Sprain of unspecified ligament of right ankle, initial encounter Condition: Good Instructions: Ankle Sprain (ED), Foot Fracture in Adults (ED), Concussion (ED) , Head Injury (ED) Additional Instructions: 1. Ice to the affected scalp hematoma frequently 2. Ice to her right ankle and foot frequently. Elevate the ankle and foot as tolerated 3. Pain medication as prescribed as needed 4. Ibuprofen [id number], 400 mg every 6-8 hours as needed for pain 5. Follow up with Orthopedics for definitive care of the foot fracture 6. For follow up with primary care physician for the closed head injury follow- up and to discuss the incidental thyroid nodules 7. ED precautions as discussed Referrals: Chilango Jessica MD [Medical Doctor] - As per Instructions Angy Cui MD [Primary Care Provider] - As per Instructions Prescriptions: Acet/Caffeine/Buta Fioricet [Fioricet (*)] 1 each PO Q6 PRN #12 tab PRN Reason: Headache
[2017-11-10] MEDS ORDERED: fentaNYL 100 MCG/2 ML INJ IVP ONE (11:18)
[2017-11-10] MEDS ORDERED: ONDANSETRON 4 MG/2 ML VIAL IVP ONE (11:21)
[2017-11-10] MEDS ORDERED: ONDANSETRON 4 MG/2 ML VIAL ONE (11:22)
[2017-11-10] MEDS ORDERED: ACETAMINOPHEN 325 MG TAB PO ONE (12:29)
[2017-11-10] MEDS ORDERED: OXYCODONE/APAP 5/325 TAB PO ONE (13:07)
[2017-11-10 14:16] VITALS: BP 119/77
== END 2017-11-10 14:17 | disposition home or self-care (01) ==
LOC: EDUNIT#
DX: S92.354A Nondisplaced fracture of fifth metatarsal bone, right foot, initial encounter for closed fracture (principal); S09.90XA Unspecified injury of head, initial encounter; W19.XXXA Unspecified fall, initial encounter; Y92.017 Garden or yard in single-family (private) house as the place of occurrence of the external cause; Y93.H2 Activity, gardening and landscaping
CPT/HCPCS: 96374; J2405; J3010